=== PATIENT | male | born 1940 | race Caucasian/White ===

== ENCOUNTER 2017-07-13 07:31 | Day surgery (SDC) ==
[2014-04-17 07:55] VITALS: BMI 28.0
[2017-07-13] MEDS ORDERED: LIDOCAINE 1% 20 ML MDV ID STA (07:55)
[2017-07-13] MEDS ORDERED: VERSED ONE (08:45)
[2017-07-13] MEDS ORDERED: DIPRIVAN 20 ML VIAL IVP ONE (08:45)
[2017-07-13 15:43] VITALS: BP 106/65; TEMP 97.5
--- NOTE | 2017-07-14 10:31 | OP ---
PROCEDURE: COLONOSCOPY TO THE CECUM. ENDOSCOPIST: Ariadna CASILLAS M.D. INDICATION: HISTORY OF POLYPS; LAST COLONOSCOPY 2012. INSTRUMENT: [id number]. MEDICATION: PER ANESTHESIA. PROCEDURE: The patient was positioned for colonoscopy. The digital rectal exam was negative. The colonoscope was inserted through the anus and advanced to the cecum. [place] Bowel Prep Score 2 + 2 + 2 = 6. In the ascending colon, two small polyps removed using snare cautery. These were less than 5 mm in size. Diverticulosis of the left colon. The retroflex exam was otherwise normal. The patient tolerated the procedure without immediate complication. Withdrawal time 9 minutes, 20 seconds. PLAN: 1. Repeat colonoscopy in 5 years. CC: DR. JOHN MARTINEZ
== END 2017-07-13 10:00 | disposition home or self-care (01) ==
LOC: SURG 07:31
PROVIDERS: ATTEND Internal Medicine Gastroenterology
DX: Z09 Encounter for follow-up examination after completed treatment for conditions other than malignant neoplasm (principal); Z86.010 Personal history of colon polyps; D12.2 Benign neoplasm of ascending colon; K57.30 Diverticulosis of large intestine without perforation or abscess without bleeding

== ENCOUNTER 2017-12-10 06:43 | Outpatient (CLI) | payer OTHER ==
[2014-04-17 07:55] VITALS: BMI 28.0
--- NOTE | 2017-12-10 11:04 | STRESSECHO ---
Date of Test: 12/10/17 Ordering Physician: DR. LOLI LOPEZ Occupation: RETIRED Reason for Exam: PALPITATIONS, SOB, ABNORMAL EKG Smoking History: QUIT 1974 Height: 66" Weight: 240 LBS Current Medications: ZOCOR Target Heart Rate: 119/141 Physical Findings: S1, S2, NO S3 Resting EKG: SINUS RHYTHM/ PVC'S/UNIFOCAL S-T SEGMENT STAGE MPH/GRADE HEART RATE BPM BLOOD PRESSURE MMHG RHYTHM +/- ELEVATION DEPRESSION SYMPTOMS,COMMENTS AT REST 70 140/72 SR X NONE 1 1.7/10% 118 140/58 SR X NONE 2 2.5/12% 3 3.4/14% 4 4.2/16% 5 5.0/18% Immediately After 148 158/80 SR X FATIGUE Minutes Post Exercise 5:00 88 148/60 SR X NO COMMENTS Minutes Post Exercise DURATION OF EXERCISE: 5:00 MAXIMUM HEART RATE REACHED: 150 BPM REASON FOR TERMINATION: FATIGUE 98% OXYGEN SATURATION WITH EXERCISE ON ROOM AIR INTERPRETATION: 1. NO EVIDENCE OF ISCHEMIA BY ST-T WAVE 2. NO CHEST PAIN OR DISCOMFORT 3. PVC'S UNIFOCAL-- LESS FREQUENT TO ABSENT WITH EXERCISE 4. BLOOD PRESSURE RESPONSE--ADEQUATE 5. NO VENTRICULAR TACHY ARRHYTHMIA POST EXERCISE LEFT VENTRICULAR CONTRACTILITY--NORMAL RESTING AND POST EXERCISE MTDD
--- NOTE | 2017-12-10 11:07 | ECHOSTRESS ---
Date of Exam: 12/10/17 Ordering Physician: DR. LOLI LOPEZ Reason for Echo: PALPITATIONS, SOB, ABNORMAL EKG, PVC'S, STRESS TEST--NO ISCHEMIA M-Mode Normal Adult Results LV Dimensions Normal Adult Results AoV Opening excursions >1.6 LVEDD-base- 3.5-5.8 Ao root dimensions 2.0-3.7 LVESD-base- 3.1-4.6 L. Atrium dimensions 1.9-3.8 Post. Wall thickness 0.8-1.1 IV septum (thickness) 0.7-1.2 Post. Wall excursion 0.72-1.3 Septal motion Systolic motion R. Ventricular cavity 1.5-2.0 LVEF 60% Paradoxical septal wall motion 2-D: NORMAL LEFT VENTRICULAR CONTRACTILITY--RESTING AND POST EXERCISE M-MODE: MV: AV: TV: PV: CHAMBER SIZE: NORMAL LEFT VENTRICULAR CONTRACTILITY--RESTING AND POST EXERCISE WALL MOTION: PERICARDIUM: INTERPRETATION: 1. NORMAL LEFT VENTRICULAR CONTRACTILITY--RESTING AND POST EXERCISE MTDD
--- NOTE | 2017-12-14 13:22 | ECHOSTRESS ---
Date of Exam: 12/10/17 Ordering Physician: DR. LOLI LOPEZ Reason for Echo: PALPITATIONS, SOB, ABNORMAL EKG, STRESS TEST--NO ISCHEMIA M-Mode Normal Adult Results LV Dimensions Normal Adult Results AoV Opening excursions >1.6 LVEDD-base- 3.5-5.8 Ao root dimensions 2.0-3.7 LVESD-base- 3.1-4.6 L. Atrium dimensions 1.9-3.8 Post. Wall thickness 0.8-1.1 IV septum (thickness) 0.7-1.2 Post. Wall excursion 0.72-1.3 Septal motion Systolic motion R. Ventricular cavity 1.5-2.0 LVEF 60% Paradoxical septal wall motion 2-D: NORMAL LEFT VENTRICULAR CONTRACTILITY--RESTING AND POST EXERCISE M-MODE: MV: AV: TV: PV: CHAMBER SIZE: WALL MOTION: NORMAL LEFT VENTRICULAR CONTRACTILITY--RESTING AND POST EXERCISE PERICARDIUM: INTERPRETATION: 1. NORMAL LEFT VENTRICULAR CONTRACTILITY--RESTING AND POST EXERCISE MTDD
== END 2017-12-10 06:44 | disposition home or self-care (01) ==
LOC: CAR 06:43
PROVIDERS: ATTEND Internal Medicine
DX: R06.02 Shortness of breath (principal); R00.2 Palpitations; R94.31 Abnormal electrocardiogram [ECG] [EKG]; I49.3 Ventricular premature depolarization